=== PATIENT | male | born 1935 | race Caucasian/White ===

== ENCOUNTER 2019-04-14 20:37 | Observation (INO) ==
[2019-04-14 21:28] LABS: BASOPHILS # (AUTO) 0.1 X10^3/uL (0.0-0.1); BASOPHILS % (AUTO) 1.5 % (0.2-1.0); EOSINOPHILS # (AUTO) 0.4 x10^3/uL (0.0-0.2); EOSINOPHILS % (AUTO) 5.3 % (0.9-2.9); HEMOGLOBIN 14.6 g/dL (13.5-18.0); LYMPHOCYTES # (AUTO) 2.2 X10^3/uL (1.3-2.9); LYMPHOCYTES % (AUTO) 29.3 % (21.0-51.0); MEAN CORPUSCULAR HEMOGLOBIN 31.9 pg (27.0-34.0); MEAN CORPUSCULAR HGB CONC 33.9 g/dL (33.0-35.0); MONOCYTES % (AUTO) 13.9 % (0.0-13.0); NEUTROPHILS # (AUTO) 3.7 x10^3/uL (2.2-4.8); PLATELET COUNT 203 X10^3/uL (150.0-450.0); RED BLOOD COUNT 4.58 X10^6/uL (4.7-6.0); RED CELL DISTRIBUTION WIDTH 13.9 % (11.6-16.5); WHITE BLOOD COUNT 7.4 X10^3/uL (3.6-10.0)
[2019-04-14] MEDS ORDERED: CATAPRES TAB 0.2 MG PO ONE (21:37)
--- NOTE | 2019-04-14 21:39 | CT ---
CT HEAD WITHOUT CONTRAST CLINICAL HISTORY: 83-year-old male with elevated blood pressure. COMPARISON: MR brain 11/08/2014. TECHNIQUE: Multiple, non-contrasted axial CT images were obtained from the skull base to the cranial vertex. Coronal and sagittal reformats were performed. Dose reduction techniques including Automated Exposure Control (AEC) and adjustment of mA and kV were utilized. FINDINGS: There are no abnormal intra- or extra-axial fluid collections, midline shift, or mass effect. Jacobson-white differentiation is normal. Global cortical involutional changes are present that are advanced for the patient's stated age. The ventricular system is enlarged but commensurate with the degree of sulcal prominence. Periventricular and supraventricular white matter hypodensity is present that is nonspecific in appearance, but most likely to represent microvascular ischemic changes. Atherosclerotic vascular calcification is present within the carotid siphons and distal vertebral arteries. The imaged paranasal sinuses, mastoid air cells, and tympanic spaces are clear. IMPRESSION: 1. No definite evidence of an acute intracranial process. If clinical concern persists for acute stroke and it would alter patient management, consider MRI/MRA brain. 2. Moderate microvascular white matter ischemic changes, with associated volume loss. Reported By:
[2019-04-14 21:40] LABS: CALCIUM 8.9 mg/dL (8.5-10.1); CARBON DIOXIDE 28.8 mmol/L (21-32); COR CA(FOR HYPOALB) 9.7 mg/dL (8.5-10.1); CREATININE 1.44 mg/dL (0.70-1.30); TOTAL PROTEIN 6.7 g/dL (6.4-8.2)
--- NOTE | 2019-04-14 21:40 | DR.HTN ---
HPI Time Seen Time Seen by Provider: 04/14/19 21:10 Primary Care Physician Primary Care Physician: ABNER HPI Comment HPI Comment: PATIENT IS 83YR OLD WHITE MALE WITH HISTORY OF DEMENTIA, GERD AND DM IS IN ED WITH ELEVATED. CHECK PATIENTS BLLOD PRESSURE AT 15:00PM TODAY WAS ELEVATED. SHE RECHECK IT AGAIN TONIGHT AND IT WAS ELEVATED. PATIENT HAVE HAD SLIGHT AMS. PATIENT ANSWERING QUESTIONS CURRENTLY. NO FEVER, HEADACHE OR LOCALIZE WEAKNESS REPORTED. BP ELEVATED IN ED. DENIES TRAUMA. PATIENT NOT ON MEDICATION FOR HTN. WAS IN THE REMOTE PAST. GAVE 1/2 OF LOSASTAN TABLET PRESCRIBE 2016 TWICE TODAY. THIS DID NOT IMPROVE BP. Complaints Chief Complaint Doctors Comments: ELEVATED BLOOD PRESSURE NOTED TODAY. Chief Complaint:: ELEVATED BLOOD PRESSURE, HIGHEST READING AT HOME 197/114. PATIENT DENIES ANY PAIN, DENIES ANY SHORTNESS OF BREATH. Reviewed Nurses Notes Reviewed: Yes Source History Provided: Patient Mode of Arrival Mode of Arrival: Wheelchair Timing Onset of Chief Complaint: 04/14/19 Severity What was the maximum recorded B/P?: 197/114 Severity: Moderate Context Circumstances: Spontaneous Onset History of: None (NOT ON BP MED. ) Associated Signs and Symptoms HTN Associated Signs and Symptoms: None PMH PMH Past Medical History: Yes Past Medical History: Dementia, Diabetes and GERD Past Surgical History: Yes Past Surgical History Comment: SPLEENECTOMY, PARTIAL PANCREAS REMOVED Family History History of Family Medical Conditions: No Social History Does patient currently use any type of tobacco product: No Have you used tobacco products in the last 12 months: No Type of Tobacco Use: None Does any household member use tobacco: No Alcohol Use: None Do you use any recreational Drugs:: No Lives With: Spouse Lives Where: Home infectious screening In the last 2 months have you had wt loss of >10#?: NO Have you had fever, night sweats or hemotysis?: No Have you traveled outside the country in the last 6 months?: No Isolation: Standard ROS Review of Systems Constitutional: See HPI, Weakness and Fatigue; negative Chills, Fever and Malaise Eyes: No Symptoms Reported and See HPI; negative Eye Pain, Blurred Vision, Discharge and Diplopia ENTM: No Symptoms Reported and See HPI; negative Ear Pain, Nose Discharge, Nose Congestion and Throat Pain Respiratoy: No Symptoms Reported and See HPI; negative Productive Cough, Short of Breath and Wheezing Cardiovascular: No Symptoms Reported, See HPI and Chest Pain; negative Edema, Palpitations and Syncope Gastrointestinal/Abdominal: No Symptoms Reported and See HPI; negative Abdominal Pain, Constipation, Diarrhea, Nausea and Vomiting Genitourinary: No Symptoms Reported and See HPI; negative Dysuria, Frequency and Hematuria Neurological: See HPI and Weakness; negative Headache and Dizziness Musculoskeletal: No Symptoms Reported, See HPI and Back Pain; negative Muscle Pain Integumentary: No Symptoms Reported and See HPI; negative Change in Color, Bruises and Juandice Hematologic/Lymphatic: No Symptoms Reported, See HPI, Easy Bruising, Swollen Glands and Lymphadenopathy Endocrine: No Symptoms Reported and See HPI; negative Increased Thirst, Increased Urine and Decreased Appetite Psychiatric: No Symptoms Reported and See HPI; negative Hallucinations Unable to Obtain Due To: Dementia PE Vital Signs Vitals: Temperature 99.3 F Pulse Rate [Left] 54 Pulse Rate 62 Respiratory Rate 14 Blood Pressure [Left Arm] 135/72 Blood Pressure 184/90 O2 Sat by Pulse Oximetry 97 General Limitations: No Limitations General Appearance: Alert and In No Apparent Distress Head Head Exam: Normal Inspection, Atraumatic and Normocephalic Eyes Eye exam: Normal Appearance, PERRL and EOMI; negative Scleral Icterus and Conjunctival Injection Pupils: Regular, Round: Bilateral and Reactive: Bilateral ENT ENT Exam: Normal Exam, Normal Oropharynx, Normal External Ear Exam and TM's Normal Bilaterally Neck Neck Exam: Normal Inspection, Full ROM and Trachea Midline; negative Tenderness, Meningismus and Lymphadenopathy Chest Chest Inspection: Normal Inspection, Symmetric Chest Wall Rise and Tenderness; negative Rash Respiratory Respiratory Exam: Normal Lung Sounds Bilat; negative Chest Wall Tenderness and Respiratory Distress Respiratory Exam: Bilateral: Rhonchi and Lower: Rhonchi Cardiovascular Cardiovascular Exam: Bradycardia and Normal Heart Sounds; negative Systolic Murmur, Diastolic Murmur, Rubs and Gallop Abdominal Exam Abdominal Exam: Normal Inspection, Normal Bowel Sounds and Soft; negative Tenderness Extremities Extremities Exam: Normal Inspection and Normal Capillary Refill; negative Tenderness, Edema, Joint Swelling and Calf Tenderness Back Back Exam: Normal Inspection; negative Tenderness, Paraspinal Tenderness and Vertebral Tenderness Neurologic Neurological Exam: Alert, Oriented X3 and CN II-XII Intact; negative Motor Sensory Deficit Patient Oriented To: Person, Place and Time Speech: Fluid Speech Cranial Nerve Exam: EOM Function (II, III, IV, ): Normal, Facial Sensation (V): Normal, Facial Palsy (VII): Normal, Gag reflex (XI): Normal and Tongue Deviation: Normal Motor Strength - LUE: 5/5 Motor Strength - RUE: 5/5 Motor Strength - LLE: 5/5 Motor Strength - RLE: 5/5 Upper Motor Neuron Exam: Babinski Sign: Normal DTR: brachioradialis (L): 2+, brachioradialis (R): 2+, Patellar (L): 2+ and patellar (R): 2+ MDM Additional Information Obtained Additional Information Obtained From: Family Differential Diagnosis Differential Diagnosis: Hyertension, essential Differential Diagnosis Comment: DENISE CARDIA, HYPERTENSION, UTI, AMS. COURSE Treatment Treatment: SEE ORDERS. CLONIDINE 0.2MG PO IN ED. BP STILL ELEVATED AFTER Consultation Consultation Comments: DISCUSS PATIENT WITH DR. ARNOLD. HE WILL ADMIT PATIENT. ADMIT ORDERS DONE. ROR Labs Reviewed Laboratory Results Reviewed?: Yes Result Diagrams: 04/16/19 04:22 04/16/19 04:22 Laboratory: WBC 7.0 X10^3/uL (3.6-10.0) 04/16/19 04:22 RBC 4.26 X10^6/uL (4.7-6.0) L 04/16/19 04:22 Hgb 13.6 g/dL (13.5-18.0) 04/16/19 04:22 Hct 40.5 % (42.0-54.0) L 04/16/19 04:22 MCV 95.1 fL (80.0-100.0) 04/16/19 04:22 MCH 31.9 pg (27.0-34.0) 04/16/19 04:22 MCHC 33.6 g/dL (33.0-35.0) 04/16/19 04:22 RDW 13.8 % (11.6-16.5) 04/16/19 04:22 Plt Count 194 X10^3/uL (150.0-450.0) 04/16/19 04:22 MPV 9.9 fL (7.4-11.0) 04/16/19 04:22 Neut % (Auto) 51.5 % (42.0-75.0) 04/16/19 04:22 Lymph % (Auto) 26.6 % (21.0-51.0) 04/16/19 04:22 [place] % (Auto) 14.9 % (0.0-13.0) H 04/16/19 04:22 Eos % (Auto) 5.9 % (0.9-2.9) H 04/16/19 04:22 Baso % (Auto) 1.1 % (0.2-1.0) H 04/16/19 04:22 Neut # (Auto) 3.6 x10^3/uL (2.2-4.8) 04/16/19 04:22 Lymph # (Auto) 1.9 X10^3/uL (1.3-2.9) 04/16/19 04:22 [place] # (Auto) 1.0 x10^3/uL (0.3-0.8) H 04/16/19 04:22 Eos # (Auto) 0.4 x10^3/uL (0.0-0.2) H 04/16/19 04:22 Baso # (Auto) 0.1 X10^3/uL (0.0-0.1) 04/16/19 04:22 Absolute Nucleated RBC 0.0 /100WBC 04/16/19 04:22 INR Target Range - 04/15/19 05:03 INR 1.08 (0.8-1.3) 04/15/19 05:03 APTT 28.6 SECONDS (22.9-36.5) 04/15/19 05:03 PTT Comment - 04/15/19 05:03 Sodium 142 mmol/L (136-145) 04/16/19 04:22 Corrected Sodium 143 mmol/L (136-145) 04/16/19 04:22 Potassium 4.1 mmol/L (3.5-5.1) 04/16/19 04:22 Chloride 109 mmol/L (98-107) H 04/16/19 04:22 Carbon Dioxide 28.3 mmol/L (21-32) 04/16/19 04:22 BUN 19 mg/dL (7-18) H 04/16/19 04:22 Creatinine 1.47 mg/dL (0.70-1.30) H 04/16/19 04:22 Est GFR (MDRD) Af Amer 59 (>60) 04/16/19 04:22 Est GFR (MDRD) Non-Af 48 (>60) L 04/16/19 04:22 Glucose 149 mg/dL (65-99) H 04/16/19 04:22 POC Glucose (mg/dL) 167 mg/dL (65-99) H 04/16/19 08:58 Calcium 8.9 mg/dL (8.5-10.1) 04/16/19 04:22 Corrected Calcium 10.1 mg/dL (8.5-10.1) 04/16/19 04:22 Magnesium 1.8 mg/dL (1.7-2.9) 04/15/19 05:03 Total Bilirubin 0.50 mg/dL (0.2-1.0) 04/16/19 04:22 AST 16 Units/L (15-37) 04/16/19 04:22 ALT 14 Units/L (12-78) 04/16/19 04:22 Alkaline Phosphatase 55 Units/L (46-116) 04/16/19 04:22 Creatine Kinase 77 Units/L (39-308) 04/15/19 10:42 CK-MB (CK-2) < 1.0 ng/mL (0-4.0) 04/15/19 10:42 CK/CKMB % Calc 1.3 % (<4) 04/15/19 10:42 Troponin I < 0.02 ng/mL (0-1.5) 04/15/19 10:42 Total Protein 5.8 g/dL (6.4-8.2) L 04/16/19 04:22 Albumin 2.5 g/dL (3.4-5.0) L 04/16/19 04:22 Globulin 3.3 g/dL (2.5-4.5) 04/16/19 04:22 Albumin/Globulin Ratio 0.8 Ratio (1.1-2.1) L 04/16/19 04:22 Triglycerides 162 mg/dL (0-150) H 04/15/19 05:03 Cholesterol 196 mg/dL (0-200) 04/15/19 05:03 LDL Cholesterol, Calc 128 mg/dL (0-100) H 04/15/19 05:03 HDL Cholesterol 36 mg/dL (40-60) L 04/15/19 05:03 Cholesterol/HDL Ratio 5.4 (0.0-5.0) H 04/15/19 05:03 Specimen Type Clean catch urine 04/14/19 21:35 Urine Color Yellow (YELLOW) 04/14/19 21:35 Urine Appearance Clear (CLEAR) 04/14/19 21:35 Urine pH 7.0 (5.0 - 8.0) 04/14/19 21:35 Ur Specific [place] 1.010 (1.000-1.030) 04/14/19 21:35 Urine Protein Negative (NEGATIVE) 04/14/19 21:35 Urine Glucose (UA) 1+ (NEGATIVE) 04/14/19 21:35 Urine Ketones Negative (NEGATIVE) 04/14/19 21:35 Urine Occult Blood Negative (NEGATIVE) 04/14/19 21:35 Urine Nitrite Negative (NEGATIVE) 04/14/19 21:35 Urine Bilirubin Negative (NEGATIVE) 04/14/19 21:35 Urine Urobilinogen Normal (NORMAL) 04/14/19 21:35 Ur Leukocyte Esterase 1+ (NEGATIVE) 04/14/19 21:35 Urine RBC None seen /HPF (NONE SEEN) 04/14/19 21:35 Urine WBC None seen /HPF (NONE SEEN) 04/14/19 21:35 Ur Squamous Epith Cells Rare /HPF (NEGATIVE) 04/14/19 21:35 Urine Bacteria Negative /HPF (NEGATIVE) 04/14/19 21:35 Ur Culture Indicated? No/not indicated 04/14/19 21:35 XRAY XRAY Interpreted by: Radiologist XRAY Findings: REPORT ON RECORD NOTED AND DISCUSS WITH PATIENT AND FAMILY. Diagnosis Discharge Problem: Hypertension, uncontrolled, Severe uncontrolled hypertension, Bradycardia, Atrial fib/flutter, transient
[2019-04-14 21:45] LABS: BILIRUBIN,URINE NEGATIVE (NEGATIVE); BLOOD/HEMOGLOBIN,URINE NEGATIVE (NEGATIVE); GLUCOSE, URINE 1+ (NEGATIVE); KETONES,URINE NEGATIVE (NEGATIVE); LEUKOCYTE ESTERASE ,URINE 1+ (NEGATIVE); NITRITES,URINE NEGATIVE (NEGATIVE); PROTEIN,URINE NEGATIVE (NEGATIVE); UROBILINOGEN,URINE NORMAL (NORMAL)
[2019-04-14 21:49] LABS: CKMB % 1.5 % (<4); CREATINE KINASE 65 Units/L (39-308); CREATINE KINASE MB < 1.0 ng/mL (0-4.0); TROPONIN I < 0.02 ng/mL (0-1.5)
[2019-04-14 21:53] LABS: APPEARANCE,URINE CLEAR (CLEAR); COLOR,URINE YELLOW (YELLOW)
[2019-04-14 21:54] LABS: BACTERIA,URINE NEGATIVE /HPF (NEGATIVE); RBC,URINE NONE SEEN /HPF (NONE SEEN); SQUAMOUS EPITHELIAL CELL,UR RARE /HPF (NEGATIVE)
[2019-04-14] MEDS ORDERED: CATAPRES TAB 0.2 MG ONE (22:10)
[2019-04-14] MEDS ORDERED: XANAX PO ONE (23:24)
[2019-04-14] MEDS ORDERED: XANAX ONE (23:25)
[2019-04-14] MEDS ORDERED: CATAPRES TAB 0.1 MG PO ONE (23:30)
[2019-04-14] MEDS ORDERED: CATAPRES TAB 0.1 MG ONE (23:31)
[2019-04-15] MEDS ORDERED: CATAPRES TAB 0.1 MG PO PRN (00:37)
[2019-04-15 01:34] VITALS: BMI 23.2
[2019-04-15] MEDS ORDERED: NS 1000 ML 1,000 ML ONE ×3 (02:05→11:48)
[2019-04-15] MEDS ORDERED: NS 1000 ML 1,000 ML IV ONE (02:17)
[2019-04-15] MEDS ORDERED: NS 1000 ML 1,000 ML IV SCH (03:00)
[2019-04-15 05:31] LABS: BASOPHILS # (AUTO) 0.1 X10^3/uL (0.0-0.1); BASOPHILS % (AUTO) 1.1 % (0.2-1.0); EOSINOPHILS # (AUTO) 0.4 x10^3/uL (0.0-0.2); EOSINOPHILS % (AUTO) 5.3 % (0.9-2.9); HEMATOCRIT 41.1 % (42.0-54.0); HEMOGLOBIN 13.9 g/dL (13.5-18.0); LYMPHOCYTES # (AUTO) 1.9 X10^3/uL (1.3-2.9); LYMPHOCYTES % (AUTO) 25.6 % (21.0-51.0); MEAN CORPUSCULAR HEMOGLOBIN 32.2 pg (27.0-34.0); MEAN CORPUSCULAR HGB CONC 33.8 g/dL (33.0-35.0); MEAN CORPUSCULAR VOLUME 95.2 fL (80.0-100.0); MEAN PLATELET VOLUME 9.9 fL (7.4-11.0); MONOCYTES % (AUTO) 12.8 % (0.0-13.0); NEUTROPHILS # (AUTO) 4.2 x10^3/uL (2.2-4.8); NEUTROPHILS % (AUTO) 55.2 % (42.0-75.0); PLATELET COUNT 199 X10^3/uL (150.0-450.0); RED BLOOD COUNT 4.32 X10^6/uL (4.7-6.0); RED CELL DISTRIBUTION WIDTH 14.2 % (11.6-16.5); WHITE BLOOD COUNT 7.5 X10^3/uL (3.6-10.0)
[2019-04-15 05:37] LABS: ALANINE AMINOTRANSFERASE 14 Units/L (12-78); ALBUMIN 2.7 g/dL (3.4-5.0); ALKALINE PHOSPHATASE 67 Units/L (46-116); ASPARTATE AMINO TRANSFERASE 11 Units/L (15-37); BLOOD UREA NITROGEN 17 mg/dL (7-18); CALCIUM 8.5 mg/dL (8.5-10.1); CARBON DIOXIDE 27.3 mmol/L (21-32); CHLORIDE 107 mmol/L (98-107); CHOL/HDL RATIO 5.4 (0.0-5.0); CHOLESTEROL 196 mg/dL (0-200); COR CA(FOR HYPOALB) 9.5 mg/dL (8.5-10.1); COR NA(FOR HYPERGLY) 141 mmol/L (136-145); CREATININE 1.32 mg/dL (0.70-1.30); HDL CHOLESTEROL 36 mg/dL (40-60); MAGNESIUM 1.8 mg/dL (1.7-2.9); SODIUM 140 mmol/L (136-145); TOTAL PROTEIN 6.1 g/dL (6.4-8.2); TRIGLYCERIDES 162 mg/dL (0-150); eGFR NON BLACK RACES 55 (>60)
[2019-04-15 05:42] LABS: CKMB % 1.8 % (<4); CREATINE KINASE 55 Units/L (39-308); CREATINE KINASE MB < 1.0 ng/mL (0-4.0); TROPONIN I < 0.02 ng/mL (0-1.5)
[2019-04-15] MEDS ORDERED: ZyPREXA TAB 5 MG ONE (08:41)
[2019-04-15] MEDS ORDERED: XANAX ONE (08:42)
[2019-04-15] MEDS: XANAX PO PRN ×3 (09:31→10:47)
[2019-04-15] MEDS: ZESTRIL TAB 10 MG PO SCH ×2 (09:32→10:47)
[2019-04-15] MEDS: ZyPREXA TAB 5 MG PO SCH ×2 (09:32→10:46)
[2019-04-15] MEDS: PROTONIX TAB 40 MG PO SCH ×2 (09:32→10:47)
[2019-04-15] MEDS ORDERED: AMARYL TAB 4 MG ONE (11:09)
[2019-04-15 11:22] LABS: CREATINE KINASE 77 Units/L (39-308); CREATINE KINASE MB < 1.0 ng/mL (0-4.0); TROPONIN I < 0.02 ng/mL (0-1.5)
[2019-04-15 11:29] LABS: CKMB % 1.3 % (<4)
[2019-04-15] MEDS ORDERED: AMARYL TAB 4 MG PO SCH (12:00)
[2019-04-15] MEDS ORDERED: PATIENT'S HOME MEDICATION PO SCH (17:00)
[2019-04-15] MEDS ORDERED: SNACK - Diabetic Appropriate PO SCH ×2 (20:00)
[2019-04-16 04:53] LABS: BASOPHILS # (AUTO) 0.1 X10^3/uL (0.0-0.1); BASOPHILS % (AUTO) 1.1 % (0.2-1.0); EOSINOPHILS # (AUTO) 0.4 x10^3/uL (0.0-0.2); EOSINOPHILS % (AUTO) 5.9 % (0.9-2.9); HEMATOCRIT 40.5 % (42.0-54.0); HEMOGLOBIN 13.6 g/dL (13.5-18.0); LYMPHOCYTES # (AUTO) 1.9 X10^3/uL (1.3-2.9); LYMPHOCYTES % (AUTO) 26.6 % (21.0-51.0); MEAN CORPUSCULAR HEMOGLOBIN 31.9 pg (27.0-34.0); MEAN CORPUSCULAR HGB CONC 33.6 g/dL (33.0-35.0); MEAN CORPUSCULAR VOLUME 95.1 fL (80.0-100.0); MEAN PLATELET VOLUME 9.9 fL (7.4-11.0); MONOCYTES % (AUTO) 14.9 % (0.0-13.0); NEUTROPHILS # (AUTO) 3.6 x10^3/uL (2.2-4.8); NEUTROPHILS % (AUTO) 51.5 % (42.0-75.0); PLATELET COUNT 194 X10^3/uL (150.0-450.0); RED BLOOD COUNT 4.26 X10^6/uL (4.7-6.0); RED CELL DISTRIBUTION WIDTH 13.8 % (11.6-16.5)
[2019-04-16 04:59] LABS: ALBUMIN 2.5 g/dL (3.4-5.0); CALCIUM 8.9 mg/dL (8.5-10.1); CARBON DIOXIDE 28.3 mmol/L (21-32); COR CA(FOR HYPOALB) 10.1 mg/dL (8.5-10.1); CREATININE 1.47 mg/dL (0.70-1.30); TOTAL PROTEIN 5.8 g/dL (6.4-8.2)
[2019-04-16] MEDS: PROTONIX TAB 40 MG PO SCH (09:00)
[2019-04-16] MEDS: ZyPREXA TAB 5 MG PO SCH (09:00)
[2019-04-16] MEDS: ZESTRIL TAB 10 MG PO SCH (09:00)
[2019-04-16 10:06] VITALS: BP 184/90
--- NOTE | 2019-04-16 17:39 | DR.H&P ---
H&P - History & Physical for Day of: H&P Date: 04/15/19 - Chief Complaint Chief Complaint: CONFUSION, HYPERTENSION, WEAKNESS - History of Present Illness History of Present Illness: IS A 83 YEAR OLD PATIENT OF OURS WHO PRESENTED TO THE ER WITH FAMILY. FAMILY REPORTS THAT HE HAS HAD ELEVATED BLOOD PRESSURES AT HOME AND WEAKNESS. HIS HIGHEST READING AT HOME WAS REPORTED TO BE 197/114. PATIENTS SPOUSE REPORTS GIVING HIM LOSARTAN 12.5MG AT HOME 1 HOUR PRIOR TO ARRIVAL. MEDICAL HISTORY INCLUDES: DEMENTIA, DIABETES, GERD, SPLEENECTOMY, AND PART OF HIS PANCREAS WAS REMOVED. ON ARRIVAL, PATIENT IS NOTED WITH DISORIENTATION. AGAIN, HE DOES HAVE A HISTORY OF DEMENTIA AND FAMILY REPORTS THAT THIS IS HIS BASELINE. ON ARRIVAL, VITALS WERE 97.7-16-67-96%-191/86. LABS WERE OBTAINED. ABNORMAL LAB VALUES INCLUDE THE FOLLOWING: RBC 4.58, CREATININE 1.44, GLUCOSE 157, AST 9, ALBUMIN 3.0. URINALYSIS WAS OBTAINED AND IS UNREMARKABLE. A BRAIN CT WAS OBTAINED AND REVEALED: No definite evidence of an acute intracranial process. If clinical concern persists for acute stroke and it would alter patient management, consider MRI/MRA brain. Moderate microvascular white matter ischemic changes, with associated volume loss. AN EKG WAS OBTAINED AND REVEALED ATRIAL FIBRILLATION WITH HR 59. HE WAS ADMITTED TO THE HOSPITAL FOR FURTHER EVALUATION AND TREATMENT OF HYPERTENSION, ATRIAL FIBRILLATION, AND GENERALIZED WEAKNESS. HIS HOME MEDICATIONS WERE RESUMED AND HE WAS STARTED ON CLONIDINE 0.1MG PO Q8H PRN. AFTER PATIENT ARRIVED TO THE FLOOR, HE WAS NOTED TO HAVE A DROP IN BLOOD PRESSURE TO 50/25 AND HIS HEART RATE WAS NOTED TO HAVE DROPPED TO THE LOW 40s. HE WAS PLACED IN [place] AND WAS BOLUSED WITH NORMAL SALINE 500ML, THEN STARTED ON NORMAL SALINE AT 125ML/HR. AFTER BOLUS OF IV FLUIDS, PATIENTS BLOOD PRESSURE INCREASED TO 134/60. ON MORNING ROUNDS, PATIENT WAS NOTED WITH SEVERE AGITATION AND CONFUSION. VITALS WERE 98.8-60-21-98%-138/77 WE STARTED ZYPREXA 5MG PO BID, XANAX 0.5MG PO TID PRN ANXIETY, AND LISINOPRIL 10MG PO DAILY. WE PLAN TO FOLLOW UP WITH AM LABS AND WILL CONTINUE TO MONITOR PATIENT. - Past Medical History Past Medical History: Diabetes, Dementia, GERD - Past Surgical History Surgical History: Spleenectomy, Other - Social History Does patient currently use any type of tobacco product: No Have you used tobacco products in the last 12 months: No Type of Tobacco Use: None Does any household member use tobacco: No Alcohol Use: None Drug Use: None - Medications Home Medications: No Known Drug Allergies Allergy (Verified 04/14/19 20:54) CONTINUE taking the following medications aspirin [Aspir-Low] 81 mg PO QDAY 04/15/19 [History] glimepiride 0.5 mg PO DAILYAC 04/15/19 [History] glimepiride 1 mg PO DAILY 04/15/19 [History] lorazepam 1 mg PO HS 04/15/19 [History] meclizine 25 mg PO PRN PRN 04/15/19 [History] naproxen 500 mg PO DAILY 04/15/19 [History] pantoprazole 40 mg PO DAILY 04/15/19 [History] New Prescriptions amlodipine 5 mg PO QDAY 30 Days #30 tab 04/16/19 [Rx] lisinopril 10 mg PO QDAY 30 Days #60 tab 04/16/19 [Rx] - Review of Systems Constitutional: Weakness Eyes: No Symptoms Reported ENT: No Symptoms Reported Respiratory: No Symptoms Reported Cardiovascular: No Symptoms Reported Gastrointestinal: No Symptoms Reported Genitourinary: No Symptoms Reported Musculoskeletal: No Symptoms Reported Skin: No Symptoms Reported Neurological: See HPI, Weakness, Confusion - Physical Exam Vital Signs: Temperature 99.3 F Pulse Rate [Left] 54 Pulse Rate 62 Respiratory Rate 14 Blood Pressure [Left Arm] 135/72 Blood Pressure 184/90 O2 Sat by Pulse Oximetry 97 Oriented: Not Oriented Eyes: Normal Ear: Normal Nose: Normal Throat: Normal Respiratory: Diminished Throughout Cardiovascular: Bradycardia : Normal Auscultation: Bowel Sounds: Normal Palpation: Normal Tenderness: Normal Skin: Normal Musculoskeletal: Normal Psychiatric: Agitation Mood Description: Anxious Affect: Anxious Speech Pattern: Inappropriate - Assessment/Plan (1) Hypertension Qualifiers: Hypertension type: unspecified secondary hypertension Qualified Code(s): I15.9 - Secondary hypertension, unspecified Status: Acute Plan: LISINOPRIL 10MG PO DAILY, CLONIDINE 0.1MG PO Q8H PRN, CONTINUE TO MONITOR (2) Dementia Qualifiers: Dementia type: unspecified type Dementia behavioral disturbance: with behavioral disturbance Qualified Code(s): F03.91 - Unspecified dementia with behavioral disturbance Status: Acute Plan: ZYPREXA 5MG PO BID, XANAX 0.5MG PO TID PRN, CONTINUE TO MONITOR (3) Generalized weakness Status: Acute - Allergies Allergies/Adverse Reactions: Allergies Allergy/AdvReac Type Severity Reaction Status Date / Time No Known Drug Allergies Allergy Verified 04/14/19 20:54
== END 2019-04-16 10:55 | disposition home or self-care (01) ==
LOC: ICU 20:39 → ER 20:39 → ICU 04-15 00:41
PROVIDERS: ADMIT Obstetrics & Gynecology Obstetrics; ATTEND Internal Medicine
DX: E11.65 Type 2 diabetes mellitus with hyperglycemia; I48.91 Unspecified atrial fibrillation; R53.1 Weakness; F03.91 Unspecified dementia, unspecified severity, with behavioral disturbance; I10 Essential (primary) hypertension; R41.82 Altered mental status, unspecified; R94.31 Abnormal electrocardiogram [ECG] [EKG]; K21.9 Gastro-esophageal reflux disease without esophagitis; R00.1 Bradycardia, unspecified
CPT/HCPCS: 36415; 70450; 80053; 80061; 81001; 82550; 82553; 83735; 84484; 85025; 85610; 85730; 93005; 96365; 99284; A4222; G0378; J7030

== ENCOUNTER 2019-10-15 04:42 | Observation (INO) ==
[2019-10-15] MEDS ORDERED: CATAPRES TAB 0.1 MG PO ONE (05:07)
--- NOTE | 2019-10-15 05:07 | DR.PSYCH ---
HPI Time Seen Time Seen by Provider: 10/15/19 04:50 PCP Primary Care Physician: Kris Saeed Chief Complaint Doctors Comments: An 84 y/o male who was brought into the ED via ambulance. The PD was called to the residence in the last 1.5 hrs. as he had walked into his 's bedroom with a golf club in hand, stating that she had a boyfriend in there with her. There was no one else in the house of course. She had told the officers that he was swinging the golf club. She managed to wrest the club from his hands. He went out the house to get another golf club. She used that opportunity to lock him out of the house and called the police. Here, is not aware of this story. When I asked if anything was bothering him or if he knew why he is here, he states he may have some anxiety and as he is closer to 88, this may be worsening. Also, he states someone had told him to come to the hospital as his BP was up. He states that the last time he touched his golf clubs was 3 months ago, before his health started going downhill. Reviewed Nurses Notes Review: Yes Source History Provided: EMS and Law Enforcement Mode of Arrival Mode of Arrival: Ambulatory Context Presents With: Bizarre Behavior History of: None Quality Quality: None Hallucinations: Visual PMH PMH Past Medical History: Dementia, Diabetes and GERD Past Surgical History: Yes Surgical History: Spleenectomy and Other Social History Do you use any recreational Drugs:: No infectious screening Isolation: Standard ROS Review of Systems Constitutional: No Symptoms Reported Eyes: No Symptoms Reported ENTM: No Symptoms Reported Respiratoy: No Symptoms Reported Cardiovascular: No Symptoms Reported Gastrointestinal/Abdominal: No Symptoms Reported Genitourinary: No Symptoms Reported Neurological: No Symptoms Reported Musculoskeletal: No Symptoms Reported Integumentary: No Symptoms Reported Hematologic/Lymphatic: No Symptoms Reported Endocrine: No Symptoms Reported Psychiatric: No Symptoms Reported PE Vitals Vitals: Temperature 98.1 F Pulse Rate 62 Respiratory Rate 18 Blood Pressure [Left Arm] 135/72 Blood Pressure 175/80 O2 Sat by Pulse Oximetry 94 General Limitations: No Limitations General Appearance: Alert and In No Apparent Distress Head Head Exam: Normal Inspection, Atraumatic and Normocephalic Head Exam Physical: Laceration Eyes Eye exam: Normal Appearance and EOMI ENT ENT Exam: Normal Exam, Normal Oropharynx and Mucous Membranes Moist Neck Neck Exam: Normal Inspection, Full ROM and Trachea Midline Chest Chest Inspection: Normal Inspection and Symmetric Chest Wall Rise Respiratory Respiratory Exam: Normal Lung Sounds Bilat Cardiovascular Cardiovascular Exam: Regular Rate, Normal Rhythm, +S1 and +S2 Abdominal Exam Abdominal Exam: Normal Inspection, Normal Bowel Sounds and Soft Extremities Extremities Exam: Normal Inspection and Full ROM Back Back Exam: Normal Inspection and Full ROM Neurologic Neurological Exam: Alert and CN II-XII Intact Patient Oriented To: Person and Place Speech: Fluid Speech Psychiatric Psychiatric Exam: Normal Affect and Normal Mood; negative Depressed, Agitated, Anxious, Flat Affect, Manic, Homicidal Ideation and Suicidal Ideation Skin Skin Exam: Dry and Normal Color COURSE Reevaluation 1st: Improved Consultation Consultation Comments: Pt's. presentation and findings were discussed with Hospitalist (Dr. Martinez), he agrees to the pt. being placed in the hospital pending definite disposition. Education/Counseling Education/Counseling: Patient, Education and Counseling Educated On: Treatment, Diagnosis, Prognosis and Needs for Follow Up ROR Labs Reviewed Laboratory Results Reviewed?: Yes Result Diagrams: 10/15/19 05:10 10/15/19 05:10 Laboratory: WBC 7.0 X10^3/uL (3.6-10.0) 10/15/19 05:10 RBC 4.43 X10^6/uL (4.7-6.0) L 10/15/19 05:10 Hgb 14.6 g/dL (13.5-18.0) 10/15/19 05:10 Hct 42.2 % (42.0-54.0) 10/15/19 05:10 MCV 95.2 fL (80.0-100.0) 10/15/19 05:10 MCH 32.8 pg (27.0-34.0) 10/15/19 05:10 MCHC 34.5 g/dL (33.0-35.0) 10/15/19 05:10 RDW 13.7 % (11.6-16.5) 10/15/19 05:10 Plt Count 191 X10^3/uL (150.0-450.0) 10/15/19 05:10 MPV 9.5 fL (7.4-11.0) 10/15/19 05:10 Neut % (Auto) 55.6 % (42.0-75.0) 10/15/19 05:10 Lymph % (Auto) 26.8 % (21.0-51.0) 10/15/19 05:10 [place] % (Auto) 12.6 % (0.0-13.0) 10/15/19 05:10 Eos % (Auto) 4.0 % (0.9-2.9) H 10/15/19 05:10 Baso % (Auto) 1.0 % (0.2-1.0) 10/15/19 05:10 Neut # (Auto) 3.9 x10^3/uL (2.2-4.8) 10/15/19 05:10 Lymph # (Auto) 1.9 X10^3/uL (1.3-2.9) 10/15/19 05:10 [place] # (Auto) 0.9 x10^3/uL (0.3-0.8) H 10/15/19 05:10 Eos # (Auto) 0.3 x10^3/uL (0.0-0.2) H 10/15/19 05:10 Baso # (Auto) 0.1 X10^3/uL (0.0-0.1) 10/15/19 05:10 Absolute Nucleated RBC 0.0 /100WBC 10/15/19 05:10 Sodium 139 mmol/L (136-145) 10/15/19 05:10 Corrected Sodium 140 mmol/L (136-145) 10/15/19 05:10 Potassium 3.8 mmol/L (3.5-5.1) 10/15/19 05:10 Chloride 104 mmol/L (98-107) 10/15/19 05:10 Carbon Dioxide 25.4 mmol/L (21-32) 10/15/19 05:10 BUN 25 mg/dL (7-18) H 10/15/19 05:10 Creatinine 1.36 mg/dL (0.70-1.30) H 10/15/19 05:10 Est GFR (MDRD) Af Amer > 60 (>60) 10/15/19 05:10 Est GFR (MDRD) Non-Af 53 (>60) L 10/15/19 05:10 Glucose 131 mg/dL (65-99) H 10/15/19 05:10 Calcium 9.0 mg/dL (8.5-10.1) 10/15/19 05:10 Corrected Calcium 9.6 mg/dL (8.5-10.1) 10/15/19 05:10 Total Bilirubin 0.50 mg/dL (0.2-1.0) 10/15/19 05:10 AST 14 Units/L (15-37) L 10/15/19 05:10 ALT 13 Units/L (12-78) 10/15/19 05:10 Alkaline Phosphatase 67 Units/L (46-116) 10/15/19 05:10 Total Protein 7.0 g/dL (6.4-8.2) 10/15/19 05:10 Albumin 3.2 g/dL (3.4-5.0) L 10/15/19 05:10 Globulin 3.8 g/dL (2.5-4.5) 10/15/19 05:10 Albumin/Globulin Ratio 0.8 Ratio (1.1-2.1) L 10/15/19 05:10 XRAY XRAY Interpreted by: Self XRAY Findings: CXR: No acute chest process Opioid Opioid Risk Tool Age (Darryl box if 16-45): No Total: 0 Total Score Risk Category: Low Risk Copyright: Say CAMPUZANO predicting aberrant behaviors Diagnosis Discharge Problem: Hallucination, visual, Hypertension, uncontrolled Dementia Qualifiers: Dementia type: unspecified type Dementia behavioral disturbance: with behavioral disturbance Qualified Code(s): F03.91 - Unspecified dementia with behavioral disturbance Diabetes type 2, controlled Qualifiers: Diabetes mellitus detention insulin use: without intermodal owner operator truck driver use Diabetes mellitus complication status: without complication Qualified Code(s): E11.9 - Type 2 diabetes mellitus without complications Instructions Forms: Excuse From Work Patient Portal
[2019-10-15 05:10] VITALS: BMI 23.7
[2019-10-15] MEDS ORDERED: CATAPRES TAB 0.1 MG ONE (05:14)
[2019-10-15 05:21] LABS: BASOPHILS # (AUTO) 0.1 X10^3/uL (0.0-0.1); EOSINOPHILS # (AUTO) 0.3 x10^3/uL (0.0-0.2); HEMATOCRIT 42.2 % (42.0-54.0); HEMOGLOBIN 14.6 g/dL (13.5-18.0); LYMPHOCYTES # (AUTO) 1.9 X10^3/uL (1.3-2.9); LYMPHOCYTES % (AUTO) 26.8 % (21.0-51.0); MEAN CORPUSCULAR HEMOGLOBIN 32.8 pg (27.0-34.0); MEAN CORPUSCULAR HGB CONC 34.5 g/dL (33.0-35.0); MEAN CORPUSCULAR VOLUME 95.2 fL (80.0-100.0); MEAN PLATELET VOLUME 9.5 fL (7.4-11.0); MONOCYTES # (AUTO) 0.9 x10^3/uL (0.3-0.8); MONOCYTES % (AUTO) 12.6 % (0.0-13.0); NEUTROPHILS # (AUTO) 3.9 x10^3/uL (2.2-4.8); NEUTROPHILS % (AUTO) 55.6 % (42.0-75.0); PLATELET COUNT 191 X10^3/uL (150.0-450.0); RED BLOOD COUNT 4.43 X10^6/uL (4.7-6.0); RED CELL DISTRIBUTION WIDTH 13.7 % (11.6-16.5)
--- NOTE | 2019-10-15 05:27 | RAD ---
Chest, 1 view Indication: Hallucinations, elevated blood pressure Comparison: None available Findings: Cardiac silhouette is unremarkable. The lungs are clear. No significant pleural effusion or pneumothorax. Impression: No acute chest process. Reported By:
[2019-10-15 05:31] LABS: ALANINE AMINOTRANSFERASE 13 Units/L (12-78); ALBUMIN 3.2 g/dL (3.4-5.0); ALKALINE PHOSPHATASE 67 Units/L (46-116); ASPARTATE AMINO TRANSFERASE 14 Units/L (15-37); BLOOD UREA NITROGEN 25 mg/dL (7-18); CARBON DIOXIDE 25.4 mmol/L (21-32); CHLORIDE 104 mmol/L (98-107); COR CA(FOR HYPOALB) 9.6 mg/dL (8.5-10.1); COR NA(FOR HYPERGLY) 140 mmol/L (136-145); CREATININE 1.36 mg/dL (0.70-1.30); SODIUM 139 mmol/L (136-145); eGFR NON BLACK RACES 53 (>60)
[2019-10-15 08:24] LABS: BILIRUBIN,URINE NEGATIVE (NEGATIVE); BLOOD/HEMOGLOBIN,URINE NEGATIVE (NEGATIVE); GLUCOSE, URINE 1+ (NEGATIVE); KETONES,URINE NEGATIVE (NEGATIVE); LEUKOCYTE ESTERASE ,URINE NEGATIVE (NEGATIVE); NITRITES,URINE NEGATIVE (NEGATIVE); PROTEIN,URINE NEGATIVE (NEGATIVE); UROBILINOGEN,URINE NORMAL (NORMAL)
[2019-10-15 08:25] LABS: APPEARANCE,URINE CLEAR (CLEAR); COLOR,URINE YELLOW (YELLOW)
[2019-10-15] MEDS ORDERED: NAPROSYN PO SCH (09:00)
[2019-10-15] MEDS ORDERED: GLIMEPIRIDE 1 MG PO SCH (09:00)
[2019-10-15] MEDS ORDERED: NS 1/2 1000 ML IV 1,000 ML IV ONE (10:51)
[2019-10-15] MEDS: NS 1/2 1000 ML IV 1,000 ML IV SCH ×2 (10:58→16:42)
[2019-10-15] MEDS: PROTONIX TAB 40 MG PO SCH (10:58)
[2019-10-15] MEDS: ASPIRIN EC 81 MG PO SCH ×2 (10:58→11:06)
[2019-10-15] MEDS: NORVASC TAB 10 MG PO SCH (10:58)
--- NOTE | 2019-10-15 13:43 | DR.H&P ---
H&P - History & Physical for Day of: H&P Date: 10/14/19 - Chief Complaint Chief Complaint: DELUSIONAL, WEAKNESS - History of Present Illness History of Present Illness: An 84 y/o male who was brought into the ED via ambulance. The PD was called to the residence in the last 1.5 hrs. as he had walked into his 's bedroom with a golf club in hand, stating that she had a boyfriend in there with her. There was no one else in the house of course. She had told the officers that he was swinging the golf club. She managed to wrest the club from his hands. He went out the house to get another golf club. She used that opportunity to lock him out of the house and called the police. Here, he is not aware of this story. When I asked if anything was bothering him or if he knew why he is here, he states he may have some anxiety and as he is closer to 88, this may be worsening. Also, he states someone had told him to come to the hospital as his BP was up. He states that the last time he touched his golf clubs was 3 months ago, before his health started going downhill. Pt has pmh of diabetes and hypertension. Pt reports increased weakness, using wheelchair and walker at home. - Past Medical History Past Medical History: Arthritis, Dementia, Diabetes, GERD - Past Surgical History Surgical History: Other, Spleenectomy - Social History Does patient currently use any type of tobacco product: No Have you used tobacco products in the last 12 months: No Type of Tobacco Use: None Does any household member use tobacco: No Alcohol Use: None Drug Use: None, Prescription Drugs - Medications Home Medications: No Known Drug Allergies Allergy (Verified 04/14/19 20:54) - Review of Systems Constitutional: Weakness Eyes: No Symptoms Reported ENT: No Symptoms Reported Respiratory: No Symptoms Reported Cardiovascular: No Symptoms Reported. denies: Edema Gastrointestinal: Nausea Genitourinary: No Symptoms Reported Musculoskeletal: Leg Pain Skin: No Symptoms Reported Neurological: Weakness, Confusion (reports per family of confusion, delusional behavior) - Physical Exam Vital Signs: Temperature 99.4 F Pulse Rate [Right] 64 Pulse Rate 62 Respiratory Rate 18 Blood Pressure [Right Arm] 168/82 Blood Pressure [Left Arm] 135/72 Blood Pressure 175/80 O2 Sat by Pulse Oximetry 96 Oriented: Time, Person, Place Eyes: Normal Ear: Normal Nose: Normal Throat: Normal Respiratory: RLL Diminished, LLL Diminished Cardiovascular: Normal : Normal Auscultation: Bowel Sounds: Normal Tenderness: Epigastric, Mild Skin: Decreased Turgur Musculoskeletal: Leg, Motor Deficit (weakness) Psychiatric: Depression Mood Description: Calm Affect: Depressed Speech Pattern: Clear, Appropriate (pt answered questions appropriately on exam, continues to state he is anxious b/c his was with another man) - Assessment/Plan (1) Generalized weakness Status: Acute Plan: ADMIT, ICU DUE TO REPORTS OF CONFUSION AND DELUSIONAL BEHAVIOR. PT IS CURRENLTY ON IV HYDRATION. CALM, PRN ATIVAN WE WILL CONTINUE. BP CONTROL, BLOOD SUGAR CONTROL. PPI THERAPY, BC AND UC ON ADMISSION, CXR ON ADMISSION. NEEDS CT HEAD, CARDIAC MONITORING, FAMILY REQUESTING CASEMANAGEMENT CONSULT FOR POSSIBLE NH PLACEMENT (2) Delusion Status: Acute (3) Dementia Status: Acute (4) Diabetes type 2, controlled Qualifiers: Diabetes mellitus group home insulin use: without truck terminal manager use Diabetes mellitus complication status: without complication Qualified Code(s): E11.9 - Type 2 diabetes mellitus without complications Status: Acute (5) Hypertension Qualifiers: Hypertension type: unspecified secondary hypertension Qualified Code(s): I15.9 - Secondary hypertension, unspecified Status: Acute - Allergies Allergies/Adverse Reactions: Allergies Allergy/AdvReac Type Severity Reaction Status Date / Time No Known Drug Allergies Allergy Verified 04/14/19 20:54
[2019-10-15] MEDS ORDERED: GLIMEPIRIDE 0.5 MG PO SCH (16:30)
[2019-10-15] MEDS: ZOLOFT PO SCH (16:41)
[2019-10-15] MEDS: COLACE CAP 100 MG PO SCH (20:18)
[2019-10-15] MEDS: ATIVAN TAB 1 MG PO SCH (20:18)
[2019-10-16] MEDS ORDERED: NS 1/2 1000 ML IV 1,000 ML IV ONE (04:28)
[2019-10-16] MEDS: NS 1/2 1000 ML IV 1,000 ML IV SCH ×2 (04:38→17:38)
[2019-10-16 06:09] LABS: BASOPHILS # (AUTO) 0.1 X10^3/uL (0.0-0.1); BASOPHILS % (AUTO) 1.2 % (0.2-1.0); EOSINOPHILS # (AUTO) 0.2 x10^3/uL (0.0-0.2); EOSINOPHILS % (AUTO) 2.5 % (0.9-2.9); HEMATOCRIT 40.3 % (42.0-54.0); HEMOGLOBIN 13.8 g/dL (13.5-18.0); LYMPHOCYTES # (AUTO) 1.4 X10^3/uL (1.3-2.9); LYMPHOCYTES % (AUTO) 14.7 % (21.0-51.0); MEAN CORPUSCULAR HGB CONC 34.2 g/dL (33.0-35.0); MEAN CORPUSCULAR VOLUME 93.8 fL (80.0-100.0); MEAN PLATELET VOLUME 9.9 fL (7.4-11.0); MONOCYTES # (AUTO) 1.2 x10^3/uL (0.3-0.8); MONOCYTES % (AUTO) 12.1 % (0.0-13.0); NEUTROPHILS # (AUTO) 6.6 x10^3/uL (2.2-4.8); NEUTROPHILS % (AUTO) 69.5 % (42.0-75.0); PLATELET COUNT 178 X10^3/uL (150.0-450.0); RED BLOOD COUNT 4.29 X10^6/uL (4.7-6.0); RED CELL DISTRIBUTION WIDTH 13.7 % (11.6-16.5); WHITE BLOOD COUNT 9.6 X10^3/uL (3.6-10.0)
[2019-10-16 06:32] LABS: ALANINE AMINOTRANSFERASE 16 Units/L (12-78); ALBUMIN 2.9 g/dL (3.4-5.0); ALKALINE PHOSPHATASE 54 Units/L (46-116); ASPARTATE AMINO TRANSFERASE 24 Units/L (15-37); BLOOD UREA NITROGEN 20 mg/dL (7-18); CALCIUM 8.6 mg/dL (8.5-10.1); CHLORIDE 104 mmol/L (98-107); COR CA(FOR HYPOALB) 9.5 mg/dL (8.5-10.1); COR NA(FOR HYPERGLY) 139 mmol/L (136-145); SODIUM 139 mmol/L (136-145); TOTAL PROTEIN 6.4 g/dL (6.4-8.2); eGFR NON BLACK RACES > 60 (>60)
[2019-10-16] MEDS: PROTONIX TAB 40 MG PO SCH (08:37)
[2019-10-16] MEDS: ZOLOFT PO SCH (08:37)
[2019-10-16] MEDS: ASPIRIN EC 81 MG PO SCH (08:37)
[2019-10-16] MEDS: NORVASC TAB 10 MG PO SCH (08:37)
--- NOTE | 2019-10-16 09:06 | CT ---
History: Confusion and visual hallucinations Study: CT head without contrast. Sagittal and coronal reformations were provided. Comparison: April 14, 2019 Findings: There is no significant change. The ventricles and sulci are moderately enlarged without mass effect. There is no intracranial hemorrhage or mass or edema or subdural collection of fluid. There is [id number] diffuse periventricular white matter patchy low attenuation. There is a partially empty sella. The calvarium is intact. There is some mucosal thickening posteriorly in the right sphenoid sinus. Impression: 1. No evidence for acute intracranial disease. 2. Unchanged atrophy and periventricular white-matter small-vessel disease 3. Minimal mucosal thickening and/or fluid posteriorly in the right sphenoid sinus Reported By:
[2019-10-16] MEDS: LOVENOX INJ 40 MG SYR SC SCH (10:25)
--- NOTE | 2019-10-16 18:10 | PCM.PROG ---
Progress Note - Progress Note for Day of Date of Exam: 10/16/19 - Subjective Subjective: 84 WM ER ADMISSION WITH DX OF DELUSIONAL BEHAVIOR, AGITATION AND ANXIETY DUE TO DEMENTIA. PT HAD CT HEAD WITHOUT ACUTE INTRACRANIAL FINDINGS. PT BP STABLE, HOME MEDICATIONS RESUMED. PT WAS STARTED ON ZOLOFT YESTERDAY FOR ANXIETY. PTS SON IS POA, REQUESTED SNF PLACEMENT. PT IS RESTING QUIETLY THIS AM, CALM NO AGRESSIVE BEHAVIOR WITNESS. NURSING STAFF REPORTS PT HAS BEEN CALM SINCE ADMISSION, CONTINUES TO REPEAT "I CAUGHT MY IN BED WITH ANOTHER MAN". PT CBC STABLE, BUN 20, CREAT 1.2 - Past Medical Family Social History Past Med/Fam/Surg Hx: No changes since H&P Allergies: Allergies No Known Drug Allergies Allergy (Verified 04/14/19 20:54) - Review of Systems ROS: No change since H&P - Vital Signs and I&O's Vital Signs: Temperature 98.5 F Pulse Rate [Right] 65 Pulse Rate 62 Respiratory Rate 18 Blood Pressure [Right Arm] 119/61 Blood Pressure [Left Arm] 135/72 Blood Pressure 175/80 O2 Sat by Pulse Oximetry 96 Intake and Output: Intake & Output 10/14/19 10/15/19 10/16/19 10/17/19 11:59 11:59 11:59 11:59 Intake Total 1850 / 1850 650 / 650 Output Total 600 / 600 Balance 1250 / 1250 650 / 650 - Physical Exam Oriented: Time, Person, Place Eyes: Normal Ear: Normal Nose: Normal Throat: Normal Respiratory: Diminished Cardiovascular: Normal : Normal Auscultation: Bowel Sounds: Normal Tenderness: Epigastric, Mild Skin: Decreased Turgur Musculoskeletal: Leg, Motor Deficit (weakness) Psychiatric: Depression Mood Description: Calm Affect: Depressed Speech Pattern: Clear, Appropriate - Laboratory and Diagnostics Result Diagrams: 10/16/19 05:40 10/16/19 05:40 Labs: Laboratory WBC 9.6 X10^3/uL (3.6-10.0) 10/16/19 05:40 RBC 4.29 X10^6/uL (4.7-6.0) L 10/16/19 05:40 Hgb 13.8 g/dL (13.5-18.0) 10/16/19 05:40 Hct 40.3 % (42.0-54.0) L 10/16/19 05:40 MCV 93.8 fL (80.0-100.0) 10/16/19 05:40 MCH 32.0 pg (27.0-34.0) 10/16/19 05:40 MCHC 34.2 g/dL (33.0-35.0) 10/16/19 05:40 RDW 13.7 % (11.6-16.5) 10/16/19 05:40 Plt Count 178 X10^3/uL (150.0-450.0) 10/16/19 05:40 MPV 9.9 fL (7.4-11.0) 10/16/19 05:40 Neut % (Auto) 69.5 % (42.0-75.0) 10/16/19 05:40 Lymph % (Auto) 14.7 % (21.0-51.0) L 10/16/19 05:40 [place] % (Auto) 12.1 % (0.0-13.0) 10/16/19 05:40 Eos % (Auto) 2.5 % (0.9-2.9) 10/16/19 05:40 Baso % (Auto) 1.2 % (0.2-1.0) H 10/16/19 05:40 Neut # (Auto) 6.6 x10^3/uL (2.2-4.8) H 10/16/19 05:40 Lymph # (Auto) 1.4 X10^3/uL (1.3-2.9) 10/16/19 05:40 [place] # (Auto) 1.2 x10^3/uL (0.3-0.8) H 10/16/19 05:40 Eos # (Auto) 0.2 x10^3/uL (0.0-0.2) 10/16/19 05:40 Baso # (Auto) 0.1 X10^3/uL (0.0-0.1) 10/16/19 05:40 Absolute Nucleated RBC 0.1 /100WBC 10/16/19 05:40 Sodium 139 mmol/L (136-145) 10/16/19 05:40 Corrected Sodium 139 mmol/L (136-145) 10/16/19 05:40 Potassium 4.0 mmol/L (3.5-5.1) 10/16/19 05:40 Chloride 104 mmol/L (98-107) 10/16/19 05:40 Carbon Dioxide 28.0 mmol/L (21-32) 10/16/19 05:40 BUN 20 mg/dL (7-18) H 10/16/19 05:40 Creatinine 1.20 mg/dL (0.70-1.30) 10/16/19 05:40 Est GFR (MDRD) Af Amer > 60 (>60) 10/16/19 05:40 Est GFR (MDRD) Non-Af > 60 (>60) 10/16/19 05:40 Glucose 111 mg/dL (65-99) H 10/16/19 05:40 POC Glucose (mg/dL) 165 mg/dL (65-99) H 10/16/19 16:48 Calcium 8.6 mg/dL (8.5-10.1) 10/16/19 05:40 Corrected Calcium 9.5 mg/dL (8.5-10.1) 10/16/19 05:40 Total Bilirubin 0.70 mg/dL (0.2-1.0) 10/16/19 05:40 AST 24 Units/L (15-37) 10/16/19 05:40 ALT 16 Units/L (12-78) 10/16/19 05:40 Alkaline Phosphatase 54 Units/L (46-116) 10/16/19 05:40 Total Protein 6.4 g/dL (6.4-8.2) 10/16/19 05:40 Albumin 2.9 g/dL (3.4-5.0) L 10/16/19 05:40 Globulin 3.5 g/dL (2.5-4.5) 10/16/19 05:40 Albumin/Globulin Ratio 0.8 Ratio (1.1-2.1) L 10/16/19 05:40 Specimen Type Random urine 10/15/19 08:10 Urine Color Yellow (YELLOW) 10/15/19 08:10 Urine Appearance Clear (CLEAR) 10/15/19 08:10 Urine pH 6.0 (5.0 - 8.0) 10/15/19 08:10 Ur Specific [place] 1.020 (1.000-1.030) 10/15/19 08:10 Urine Protein Negative (NEGATIVE) 10/15/19 08:10 Urine Glucose (UA) 1+ (NEGATIVE) 10/15/19 08:10 Urine Ketones Negative (NEGATIVE) 10/15/19 08:10 Urine Occult Blood Negative (NEGATIVE) 10/15/19 08:10 Urine Nitrite Negative (NEGATIVE) 10/15/19 08:10 Urine Bilirubin Negative (NEGATIVE) 10/15/19 08:10 Urine Urobilinogen Normal (NORMAL) 10/15/19 08:10 Ur Leukocyte Esterase Negative (NEGATIVE) 10/15/19 08:10 - Plan (1) Generalized weakness Status: Acute Plan: ICU DUE TO REPORTS OF CONFUSION AND DELUSIONAL BEHAVIOR PRIOR TO ADMISSION. PT IS CURRENLTY ON IV HYDRATION. CALM, PRN ATIVAN WE WILL CONTINUE. BP CONTROL, BLOOD SUGAR CONTROL. PPI THERAPY, BC AND UC ON ADMISSION, CXR ON ADMISSION. CT HEAD W/O ACUTE INTRACRANIAL FINDINGS, CARDIAC MONITORING, FAMILY REQUESTING CASEMANAGEMENT CONSULT FOR POSSIBLE NH PLACEMENT (2) Delusion Status: Acute (3) Dementia Status: Acute Qualifiers: Dementia behavioral disturbance: with behavioral disturbance Plan: ADD RISPERDAL O.5 BID (4) Diabetes type 2, controlled Status: Acute Qualifiers: Diabetes mellitus intermediate designer insulin use: without intermediate designer use Diabetes mellitus complication status: without complication Qualified Code(s): E11.9 - Type 2 diabetes mellitus without complications (5) Hypertension Status: Acute Qualifiers: Hypertension type: unspecified secondary hypertension Qualified Code(s): I15.9 - Secondary hypertension, unspecified
[2019-10-16] MEDS: ATIVAN TAB 1 MG PO SCH (20:43)
[2019-10-16] MEDS: COLACE CAP 100 MG PO SCH (20:43)
[2019-10-17] MEDS: NS 1/2 1000 ML IV 1,000 ML IV SCH ×2 (05:44→08:59)
[2019-10-17 06:10] LABS: BASOPHILS # (AUTO) 0.1 X10^3/uL (0.0-0.1); BASOPHILS % (AUTO) 0.8 % (0.2-1.0); EOSINOPHILS # (AUTO) 0.2 x10^3/uL (0.0-0.2); EOSINOPHILS % (AUTO) 2.7 % (0.9-2.9); HEMOGLOBIN 13.7 g/dL (13.5-18.0); LYMPHOCYTES # (AUTO) 1.3 X10^3/uL (1.3-2.9); LYMPHOCYTES % (AUTO) 17.5 % (21.0-51.0); MEAN CORPUSCULAR HGB CONC 34.2 g/dL (33.0-35.0); MEAN CORPUSCULAR VOLUME 93.6 fL (80.0-100.0); MEAN PLATELET VOLUME 9.6 fL (7.4-11.0); MONOCYTES # (AUTO) 0.9 x10^3/uL (0.3-0.8); MONOCYTES % (AUTO) 12.6 % (0.0-13.0); NEUTROPHILS # (AUTO) 4.8 x10^3/uL (2.2-4.8); NEUTROPHILS % (AUTO) 66.4 % (42.0-75.0); PLATELET COUNT 184 X10^3/uL (150.0-450.0); RED BLOOD COUNT 4.27 X10^6/uL (4.7-6.0); RED CELL DISTRIBUTION WIDTH 13.7 % (11.6-16.5); WHITE BLOOD COUNT 7.2 X10^3/uL (3.6-10.0)
[2019-10-17 06:31] LABS: ALANINE AMINOTRANSFERASE 19 Units/L (12-78); ALBUMIN 2.8 g/dL (3.4-5.0); ALKALINE PHOSPHATASE 48 Units/L (46-116); ASPARTATE AMINO TRANSFERASE 29 Units/L (15-37); BLOOD UREA NITROGEN 21 mg/dL (7-18); CALCIUM 8.6 mg/dL (8.5-10.1); CARBON DIOXIDE 27.5 mmol/L (21-32); CHLORIDE 105 mmol/L (98-107); COR CA(FOR HYPOALB) 9.6 mg/dL (8.5-10.1); COR NA(FOR HYPERGLY) 141 mmol/L (136-145); SODIUM 141 mmol/L (136-145); TOTAL PROTEIN 6.2 g/dL (6.4-8.2); eGFR NON BLACK RACES 56 (>60)
[2019-10-17] MEDS: LOVENOX INJ 40 MG SYR SC SCH (08:57)
[2019-10-17 08:58] VITALS: BP 129/60
[2019-10-17] MEDS: ZOLOFT PO SCH (08:58)
[2019-10-17] MEDS: NORVASC TAB 10 MG PO SCH (08:58)
[2019-10-17] MEDS: PROTONIX TAB 40 MG PO SCH (08:58)
[2019-10-17] MEDS: ASPIRIN EC 81 MG PO SCH (08:58)
[2019-10-17] MEDS ORDERED: ATIVAN TAB 1 MG PO ONE (10:31)
== END 2019-10-17 11:20 ==
LOC: ICU 04:42 → ER 04:42 → ICU 08:13
PROVIDERS: ADMIT Internal Medicine; ATTEND Internal Medicine
CPT/HCPCS: 36415; 70450; 71010; 71045; 80053; 81003; 85025; 87040; 87086; 96360; 96361; 96365; 96372; 97163; 97165; 99284; A4222; G0378; J1650